=== PATIENT | male | born 1990 | race Caucasian/White ===

== ENCOUNTER 2017-06-12 16:09 | Emergency (ER) | payer MEDICAID ==
[2017-06-12 16:30] VITALS: BP 139/87
--- NOTE | 2017-06-12 18:23 | ED Physician Documentation ---
PD HPI UPPER EXT INJURY - Stated complaint Stated Complaint: R HAND NUMB - Chief complaint Chief Complaint: Ext Problem - History obtained from History obtained from: Patient - History of Present Illness Location: Right, Wrist PD PAST MEDICAL HISTORY - Past Medical History Cardiovascular: None Respiratory: Asthma, Pneumonia Neuro: None Endocrine/Autoimmune: None GI: None : None HEENT: None Psych: Anxiety Musculoskeletal: None Derm: None - Past Surgical History Past Surgical History: Yes HEENT: Tonsil/Adenoidectomy - Present Medications Home Medications: Ambulatory Orders Medication Instructions Recorded Confirmed No Known Home Medications [No 06/12/17 06/12/17 Known Home Medications] - Allergies Allergies/Adverse Reactions: Allergies Allergy/AdvReac Type Severity Reaction Status Date / Time No Known Drug Allergies Allergy Verified 06/12/17 16:30 - Social History Does the pt smoke?: Yes Smoking Status: Current every day smoker Does the pt drink ETOH?: No Does the pt have substance abuse?: Yes - Immunizations Immunizations are current?: No - POLST Patient has POLST: No Results - Vitals Vitals: Vital Signs - 24 hr 06/12/17 16:28 Temperature 36.1 C L Heart Rate 96 Respiratory 14 Rate Blood Pressure 139/87 H O2 Saturation 100 Oxygen O2 Source Room air
== END 2017-06-12 18:23 | disposition left against medical advice (07) ==
LOC: ED 16:09
DX: Z53.21 Procedure and treatment not carried out due to patient leaving prior to being seen by health care provider (principal)
CPT/HCPCS: 99281

== ENCOUNTER 2019-06-14 13:56 | Emergency (ER) | payer MEDICAID, OTHER ==
--- NOTE | 2019-06-14 14:42 | ED Physician Documentation ---
History of Present Illness - Stated complaint Stated Complaint: LT FT PX - Chief complaint Chief Complaint: Ext Problem - History obtained from History obtained from: Patient - Additonal information Additional information: Patient is a previously healthy 29-year-old male presenting with left foot and ankle pain after mechanical fall yesterday. 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 Patient denies other fall, striking of head, loss of consciousness, other injury. Patient has been able to bear weight but has significant discomfort. No change in skin such as erythema, rash, swelling. No change in range of motion, strength, or sensation to left lower extremity. No other improving or worsening factors noted. Review of Systems Musculoskeletal: reports: Extremity pain, Joint pain, Pain with weight bearing. denies: Extremity swelling, Joint swelling Neurologic: denies: Focal weakness, Numbness, Head injury, LOC PD PAST MEDICAL HISTORY - Past Medical History Cardiovascular: None Respiratory: Asthma, Pneumonia Endocrine/Autoimmune: None GI: None : None HEENT: None Psych: Anxiety Musculoskeletal: None Derm: None - Past Surgical History Past Surgical History: Yes HEENT: Tonsil/Adenoidectomy - Present Medications Home Medications: Ambulatory Orders Medication Instructions Recorded Confirmed Cephalexin [Keflex] 500 mg PO Q6H #28 capsule 06/14/19 - Allergies Allergies/Adverse Reactions: Allergies Allergy/AdvReac Type Severity Reaction Status Date / Time No Known Drug Allergies Allergy Verified 06/12/17 16:30 - Social History Does the pt smoke?: Yes Smoking Status: Current every day smoker Does the pt drink ETOH?: No Does the pt have substance abuse?: Yes - Immunizations Immunizations are current?: No - POLST Patient has POLST: No PD ED PE NORMAL - Vitals Vital signs reviewed: Yes - General General: Alert and oriented X 3, No acute distress, Well developed/nourished - HEENT HEENT: Atraumatic, Moist mucous membranes - Neck Neck: Supple, no meningeal sign - Cardiac Cardiac: Strong equal pulses - Respiratory Respiratory: No respiratory distress - Derm Derm: Normal color, Warm and dry, No rash, Other (Puncture wound to bottom of left foot along lateral aspect without comp occasions or signs of infection) - Extremities Extremities: No deformity. No: No tenderness to palpate (Pain with palpation of bottom of foot, as well as anterior left ankle.Remainder of left lower extremity within normal limits.) - Neuro Neuro: Alert and oriented X 3, No motor deficit, No sensory deficit - Psych Psych: Normal mood, Normal affect Results - Vitals Vitals: Vital Signs - 24 hr 06/14/19 14:20 Temperature 36.6 C Heart Rate 100 Respiratory 16 Rate Blood Pressure 145/93 H O2 Saturation 98 Oxygen O2 Source Room air PD MEDICAL DECISION MAKING - ED course Complexity details: reviewed results, re-evaluated patient, considered differential, d/w patient ED course: Patient presenting with puncture wound to the foot that is otherwise uncomplicated, but did go through the sole of his shoe. To consider other bacterial infections including Pseudomonas, but given his avenue of work and activity, decided that Keflex would be most appropriate as compared to other medications including levofloxacin. Plain films obtained which not find evidence of bony abnormality such as dislocation or fracture. Feel the patient is experiencing an ankle sprain. Otherwise, feel that he is safe to discharge home. Discussed use of antibiotics, supportive cares, work excuse, return precautions and follow-up. Patient voiced understanding and is comfortable with discharge plan. Departure - Departure Disposition: 01 Home, Self Care Clinical Impression: Puncture wound Ankle pain Qualifiers: Chronicity: acute Laterality: left Qualified Code(s): M25.572 - Pain in left ankle and joints of left foot Condition: Good Instructions: ED Wound Puncture General, ED Sprain Ankle Follow-Up: your,doctor [Other] - Within 3 Days Prescriptions: Cephalexin [Keflex] 500 mg PO Q6H #28 capsule Comments: Please keep wound clean and dry using running water and soap only to clean. Do not submerge underwater. Recommend rest, elevation, ice application, ibuprofen/Tylenol as needed for ankle sprain. Follow-up with primary care physician in next 2 to 3 days and return to ED sooner if experience worsening symptoms or have other concerns. Forms: Activity restrictions
--- NOTE | 2019-06-14 15:34 | XRAY Report ---
Reason: punture wound to bottom foot, pain throughout Procedure Date: 06/14/2019 Accession Number: [id number] / [id number] Procedure: XR - Foot 3 View LT CPT Code: FULL RESULT: EXAM: LEFT FOOT RADIOGRAPHY EXAM DATE: 06/14/2019 03:19 PM. CLINICAL HISTORY: Punture wound to bottom foot, pain throughout. Left lateral foot puncture after stepping on tool today. COMPARISON: None. TECHNIQUE: 3 views. FINDINGS: Bones: No evidence for acute fracture. Small chronic appearing bone fragment seen adjacent to the dorsal distal aspect of the talus. Small distal dorsal navicular bone spur. Tiny chronic appearing calcification seen at the medial aspect of the first interphalangeal joint. Probable small bone island at the posterior aspect of the calcaneus. Joints: Normal. No subluxations. Soft Tissues: No acute soft tissue findings are seen. No definite radiopaque foreign bodies identified. IMPRESSION: No acute findings are seen. See above. RADIA
--- NOTE | 2019-06-14 16:25 | XRAY Report ---
Reason: rolled ankle with anterior pain Procedure Date: 06/14/2019 Accession Number: [id number] / [id number] Procedure: XR - Ankle 3 View LT CPT Code: FULL RESULT: EXAM: LEFT ANKLE RADIOGRAPHY EXAM DATE: 06/14/2019 03:19 PM. CLINICAL HISTORY: Rolled ankle with anterior pain. COMPARISON: None. TECHNIQUE: 3 views. FINDINGS: Bones: No fracture or focal bony lesion. Joints: No evidence of dislocation. Soft Tissues: No unexpected soft tissue findings. IMPRESSION: No evidence of fracture or dislocation. RADIA
[2019-06-14] MEDS ORDERED: TETANUS/DIPHTHERIA/PERTUSSIS 0.5 ML SYRINGE IM ONE (16:43)
[2019-06-14 17:01] VITALS: BP 168/92
== END 2019-06-14 17:01 | disposition home or self-care (01) ==
LOC: ED 13:56
DX: S91.332A Puncture wound without foreign body, left foot, initial encounter (principal); W22.8XXA Striking against or struck by other objects, initial encounter; S93.402A Sprain of unspecified ligament of left ankle, initial encounter; X50.1XXA Overexertion from prolonged static or awkward postures, initial encounter; Y93.89 Activity, other specified; Y99.0 Civilian activity done for income or pay; Z23 Encounter for immunization; F17.200 Nicotine dependence, unspecified, uncomplicated
CPT/HCPCS: 90471; 99283

== ENCOUNTER 2019-06-19 | Emergency (ER) | payer MEDICAID, OTHER | END 2019-06-19 17:05 | disposition home or self-care (01) | DX: S13.9XXA Sprain of joints and ligaments of unspecified parts of neck, initial encounter (principal); S43.401A Unspecified sprain of right shoulder joint, initial encounter; S33.5XXA Sprain of ligaments of lumbar spine, initial encounter; V89.2XXA Person injured in unspecified motor-vehicle accident, traffic, initial encounter; F17.200 Nicotine dependence, unspecified, uncomplicated | CPT/HCPCS: 71046; 72125; 72131; 73030; 99283; 99284; A9270 ==

== ENCOUNTER 2019-06-19 13:30 | Outpatient (CLI) | payer OTHER | END 2019-06-19 13:31 | disposition EMS.NT | LOC: EMS 13:30 | PROVIDERS: ATTEND Surgery | DX: M25.511 Pain in right shoulder (principal) ==

== ENCOUNTER 2020-09-22 10:04 | Emergency (ER) | payer MEDICAID ==
[2020-09-22 10:28] LABS: BILIRUBIN,URINE NEGATIVE (NEGATIVE); GLUCOSE, URINE (UA) NEGATIVE (NEGATIVE); KETONES,URINE (UA) NEGATIVE (NEGATIVE); LEUKOCYTE ESTERASE, URINE NEGATIVE (NEGATIVE); NITRITE,URINE NEGATIVE (NEGATIVE); OCCULT BLOOD,URINE TRACE-INTA (NEGATIVE); PROTEIN,URINE NEGATIVE (NEGATIVE); UROBILINOGEN,URINE 0.2 (NORMAL) E.U./dL (NORMAL)
[2020-09-22 10:29] LABS: CLARITY,URINE CLEAR (CLEAR)
[2020-09-22 10:38] LABS: BASOPHILS # (AUTO) 0.1 10^3/uL (0.0-0.1); BASOPHILS % (AUTO) 0.4 %; EOSINOPHILS % (AUTO) 0.2 %; LYMPHOCYTES # (AUTO) 2.4 10^3/uL (1.5-3.5); LYMPHOCYTES % (AUTO) 14.9 %; MEAN CORPUSCULAR HEMOGLOBIN 30.9 pg (27.0-31.0); MEAN CORPUSCULAR HGB CONC 35.1 g/dL (32.0-36.0); MEAN PLATELET VOLUME 10.3 fL (7.4-11.4); MONOCYTES % (AUTO) 6.3 %; NEUTROPHILS # (AUTO) 12.4 10^3/uL (1.5-6.6); NEUTROPHILS % (AUTO) 77.7 %; PLT - PLATELET COUNT 292 10^3/uL (130-450); RED BLOOD COUNT 5.18 10^6/uL (4.70-6.10); RED CELL DISTRIBUTION WIDTH 11.8 % (12.0-15.0)
--- NOTE | 2020-09-22 10:38 | ED Physician Documentation ---
PD HPI NVD - Stated complaint Stated Complaint: CRAMPING - Chief complaint Chief Complaint: Abd Pain - History obtained from History obtained from: Patient - History of Present Illness Timing - onset: How many days ago (3) Timing - duration: Days Timing - details: Gradual onset, Still present, Waxing and waning Associated symptoms: Abdominal pain Contributing factors: No: Sick contact, Bad food, Travel, Recent antibiotics, Alcohol use, Anticoagulated, Diabetes Improved by: Eating, Vomiting Similar symptoms before: Has not had sx before Recently seen: Not recently seen - Additonal information Additional information: Epigastric pain Review of Systems Constitutional: denies: Fever Eyes: denies: Decreased vision Ears: denies: Ear pain Nose: denies: Congestion Throat: denies: Sore throat Cardiac: denies: Chest pain / pressure, Palpitations Respiratory: denies: Dyspnea, Cough GI: reports: Abdominal Pain, Nausea, Vomiting : denies: Dysuria, Frequency PD PAST MEDICAL HISTORY - Past Medical History Past Medical History: Yes Cardiovascular: None Respiratory: Asthma, Pneumonia Neuro: None Endocrine/Autoimmune: None GI: GERD : None HEENT: None Psych: Anxiety Musculoskeletal: None Derm: None - Past Surgical History Past Surgical History: Yes HEENT: Tonsil/Adenoidectomy - Present Medications Home Medications: Ambulatory Orders Medication Instructions Recorded Confirmed Cephalexin [Keflex] 500 mg PO Q6H #28 capsule 06/14/19 Sucralfate [Carafate] 1 gm PO ACHS #60 tablet 09/22/20 - Allergies Allergies/Adverse Reactions: Allergies Allergy/AdvReac Type Severity Reaction Status Date / Time No Known Drug Allergies Allergy Verified 09/22/20 10:08 - Social History Does the pt smoke?: Yes Smoking Status: Current every day smoker Does the pt drink ETOH?: Yes Does the pt have substance abuse?: Yes Substance Use and Type: Marijuana - Immunizations Immunizations are current?: No - POLST Patient has POLST: No PD ED PE NORMAL - Vitals Vital signs reviewed: Yes (hypertensive ) - General General: Alert and oriented X 3, No acute distress, Well developed/nourished - HEENT HEENT: Atraumatic, PERRL, EOMI - Neck Neck: Supple, no meningeal sign, No bony TTP - Cardiac Cardiac: RRR, No murmur - Respiratory Respiratory: No respiratory distress, Clear bilaterally - Abdomen Abdomen: Normal bowel sounds, Soft, Non distended, No organomegaly, Other (minimal tenderness to deep palpation of the epigastrium ) - Back Back: No CVA TTP, No spinal TTP - Derm Derm: Normal color, Warm and dry, No rash - Extremities Extremities: No deformity, No edema - Neuro Neuro: Alert and oriented X 3, lemon picker 2-12 intact, No motor deficit Eye Opening: Spontaneous Motor: Obeys Commands Verbal: Oriented GCS Score: 15 - Psych Psych: Normal mood, Normal affect Results - Vitals Vitals: Vital Signs - 24 hr 09/22/20 09/22/20 09/22/20 10:08 10:32 12:14 Temperature 37 C 36.9 C 37.5 C Heart Rate 86 73 80 Respiratory 18 18 18 Rate Blood Pressure 132/95 H 111/78 122/78 O2 Saturation 96 96 100 Oxygen O2 Source Room air - Labs Labs: Laboratory Tests 09/22/20 09/22/20 09/22/20 10:15 10:25 10:25 WBC 16.0 H RBC 5.18 Hgb 16.0 Hct 45.6 MCV 88.0 MCH 30.9 MCHC 35.1 RDW 11.8 L Plt Count 292 MPV 10.3 Neut # (Auto) 12.4 H Lymph # (Auto) 2.4 [place] # (Auto) 1.0 Eos # (Auto) 0.0 Baso # (Auto) 0.1 Absolute Nucleated RBC 0.00 Nucleated RBC % 0.0 Sodium 137 Potassium 3.7 Chloride 102 Carbon Dioxide 23 Anion Gap 12.0 BUN 13 Creatinine 0.9 Estimated GFR (MDRD) 100 Glucose 122 H Calcium 9.4 Total Bilirubin 0.8 AST 25 ALT 39 Alkaline Phosphatase 63 Total Protein 7.8 Albumin 4.5 Globulin 3.3 Albumin/Globulin Ratio 1.4 Lipase 25 Urine Color LT. YELLOW Urine Clarity CLEAR Urine pH 6.0 Ur Specific [place] 1.015 Urine Protein NEGATIVE Urine Glucose (UA) NEGATIVE Urine Ketones NEGATIVE Urine Occult Blood TRACE-INTA Urine Nitrite NEGATIVE Urine Bilirubin NEGATIVE Urine Urobilinogen 0.2 (NORMAL) Ur Leukocyte Esterase NEGATIVE Ur Microscopic Review NOT INDICATED Urine Culture Comments NOT INDICATED PD MEDICAL DECISION MAKING - ED course Complexity details: reviewed old records, reviewed results, re-evaluated patient, considered differential, d/w patient, d/w family ED course: 30 y/o male with a sour stomach has improvement in symptoms with the use of a GI cocktail consisting of Viscous lidocaine and Mylanta.He is diagnosed with gastritis and will place him on some Pepcid AC and Carafate. I have asked the patient to follow-up with surgery for scoping if required within the next month. Departure - Departure Disposition: Home, Self Care Clinical Impression: Gastritis Qualifiers: Gastritis type: unspecified gastritis Chronicity: acute Gastritis bleeding: without bleeding Qualified Code(s): K29.00 - Acute gastritis without bleeding Condition: Stable Instructions: ED PUD Vs Gastritis Follow-Up: [facility] [Provider Group] Tavon Christianson MD [Provider Admit Priv/Credential] - Prescriptions: Sucralfate [Carafate] 1 gm PO ACHS #60 tablet Comments: Today you have been diagnosed with gastritis or an inflammation of the lining of the stomach. This can include peptic ulcer. The recommendation is to take Pepcid AC daily for 10 to 14 days and in addition I have prescribed Carafate. Expect her symptoms to resolve rapidly and be resolved. If you have recurrence of your symptoms after completion of your treatment follow-up with the surgical center for further evaluation. Discharge Date/Time: 09/22/20 12:15
[2020-09-22 10:47] LABS: ALBUMIN 4.5 g/dL (3.2-5.5); ALBUMIN/GLOBULIN RATIO 1.4 (1.0-2.2); BILIRUBIN,TOTAL 0.8 mg/dL (0.2-1.0); CALCIUM 9.4 mg/dL (8.5-10.3); CREATININE 0.9 mg/dL (0.6-1.2); TOTAL PROTEIN 7.8 g/dL (6.7-8.2)
[2020-09-22] MEDS ORDERED: SUCRALFATE 1 GM/10 ML UDC PO STA (11:00)
[2020-09-22] MEDS ORDERED: LIDOCAINE VISCOUS 2% 15 ML UDC MM STA (11:00)
[2020-09-22] MEDS ORDERED: MAG HYDROX/AL HYDROX/SIMETH 30 ML UDC PO STA (11:00)
[2020-09-22 12:14] VITALS: BP 122/78
== END 2020-09-22 12:15 | disposition home or self-care (01) ==
LOC: ED 10:04
DX: K29.00 Acute gastritis without bleeding (principal); F17.200 Nicotine dependence, unspecified, uncomplicated
CPT/HCPCS: 36415; 80053; 81003; 83690; 85025; 99283; 99284; A9270; 81001; 87086

== ENCOUNTER 2020-09-23 08:43 | Emergency (ER) | payer MEDICAID ==
[2020-09-23] MEDS ORDERED: LIDOCAINE VISCOUS 2% 15 ML UDC MM STA (09:02)
[2020-09-23] MEDS ORDERED: MAG HYDROX/AL HYDROX/SIMETH 30 ML UDC PO STA (09:02)
--- NOTE | 2020-09-23 09:03 | ED Physician Documentation ---
PD HPI ABD PAIN - Stated complaint Stated Complaint: ABD PX, SWEATS - Chief complaint Chief Complaint: Abd Pain - History obtained from History obtained from: Patient - Additional information Additional information: 30-year-old gentleman with no history of significant abdominal problems was seen here yesterday for presumed gastritis. He did have relief with a GI cocktail. Labs were notable for leukocytosis. He was given sucralfate and referred for upper endoscopy. After taking the sucralfate this morning his pain is better but not resolved but started to be getting sweats and hot flashes. He has no history of abdominal surgeries. He does use marijuana daily and find some relief from a hot bath. Review of Systems Constitutional: reports: Chills, Sweats. denies: Fever Cardiac: denies: Palpitations Respiratory: denies: Dyspnea, Cough GI: reports: Abdominal Pain, Nausea. denies: Vomiting PD PAST MEDICAL HISTORY - Past Medical History Cardiovascular: None Respiratory: Asthma, Pneumonia Neuro: None Endocrine/Autoimmune: None GI: None : None HEENT: None Psych: Anxiety Musculoskeletal: None Derm: None - Past Surgical History Past Surgical History: Yes HEENT: Tonsil/Adenoidectomy - Present Medications Home Medications: Ambulatory Orders Medication Instructions Recorded Confirmed Cephalexin [Keflex] 500 mg PO Q6H #28 capsule 06/14/19 Sucralfate [Carafate] 1 gm PO ACHS #60 tablet 09/22/20 Omeprazole 20 mg PO DAILY #30 capsule. 09/23/20 - Allergies Allergies/Adverse Reactions: Allergies Allergy/AdvReac Type Severity Reaction Status Date / Time No Known Drug Allergies Allergy Verified 09/23/20 08:51 - Social History Does the pt smoke?: Yes Smoking Status: Current every day smoker Does the pt drink ETOH?: No Does the pt have substance abuse?: Yes - Immunizations Immunizations are current?: No - POLST Patient has POLST: No PD ED PE NORMAL - Vitals Vital signs reviewed: Yes - General General: Alert and oriented X 3, No acute distress - Cardiac Cardiac: RRR, No murmur - Respiratory Respiratory: No respiratory distress, Clear bilaterally - Abdomen Abdomen: Normal bowel sounds, Soft, Non tender - Extremities Extremities: No edema, No calf tenderness / cord - Neuro Neuro: Alert and oriented X 3, Normal speech Results - Vitals Vitals: Vital Signs - 24 hr 09/23/20 09/23/20 08:48 09:50 Temperature 37.1 C Heart Rate 117 H 75 Respiratory 16 19 Rate Blood Pressure 156/90 H 130/86 H O2 Saturation 99 98 Oxygen O2 Source Room air - Labs Labs: Laboratory Tests 09/23/20 09/23/20 09:09 09:09 WBC 13.7 H RBC 5.23 Hgb 16.3 Hct 45.9 MCV 87.8 MCH 31.2 H MCHC 35.5 RDW 11.8 L Plt Count 284 MPV 10.2 Neut # (Auto) 10.3 H Lymph # (Auto) 2.6 [place] # (Auto) 0.8 Eos # (Auto) 0.1 Baso # (Auto) 0.1 Absolute Nucleated RBC 0.00 Nucleated RBC % 0.0 Sodium 138 Potassium 3.6 Chloride 104 Carbon Dioxide 22 Anion Gap 12.0 BUN 12 Creatinine 0.9 Estimated GFR (MDRD) 100 Glucose 115 H Calcium 9.1 Total Bilirubin 1.2 H AST 24 ALT 40 Alkaline Phosphatase 58 Total Protein 7.8 Albumin 4.6 Globulin 3.2 Albumin/Globulin Ratio 1.4 Lipase 24 - Rads (name of study) RUQ sono Radiology: Prelim report reviewed (fatty liver) PD MEDICAL DECISION MAKING - ED course ED course: 30-year-old gentleman presents with persistent upper abdominal pain, most likely gastritis. He did get relief with a GI cocktail. He does use marijuana daily, discussed with him if this becomes a recurrent phenomenon that he should consider quitting THC products. We will change him over to a PPI. Given mild increase in bilirubin since yesterday and a right upper quadrant ultrasound was done without pertinent positive findings. Remained completely nontender on reevaluation prior to discharge. Departure - Departure Disposition: 01 Home, Self Care Clinical Impression: Gastritis Qualifiers: Gastritis type: unspecified gastritis Chronicity: acute Gastritis bleeding: w ithout bleeding Qualified Code(s): K29.00 - Acute gastritis without bleeding Abdominal pain Qualifiers: Abdominal location: epigastric Qualified Code(s): R10.13 - Epigastric pain Condition: Stable Record reviewed to determine appropriate education?: Yes Instructions: ED Gastritis Follow-Up: Blaise Hicks MD [Provider Admit Priv/Credential] - Prescriptions: Omeprazole 20 mg PO DAILY #30 capsule.dr Comments: Return if worsening or if pain moves to the lower abdomen. If not better very quickly follow-up with a surgeon for evaluation for upper endoscopy. One is listed on this form.
[2020-09-23] MEDS ORDERED: PANTOPRAZOLE 40 MG VIAL IVP STA (09:04)
[2020-09-23 09:13] LABS: BASOPHILS # (AUTO) 0.1 10^3/uL (0.0-0.1); BASOPHILS % (AUTO) 0.4 %; EOSINOPHILS # (AUTO) 0.1 10^3/uL (0.0-0.7); EOSINOPHILS % (AUTO) 0.4 %; HGB - HEMOGLOBIN 16.3 g/dL (14.0-18.0); LYMPHOCYTES # (AUTO) 2.6 10^3/uL (1.5-3.5); LYMPHOCYTES % (AUTO) 18.6 %; MEAN CORPUSCULAR HEMOGLOBIN 31.2 pg (27.0-31.0); MEAN CORPUSCULAR HGB CONC 35.5 g/dL (32.0-36.0); MEAN CORPUSCULAR VOLUME 87.8 fL (80.0-94.0); MEAN PLATELET VOLUME 10.2 fL (7.4-11.4); MONOCYTES # (AUTO) 0.8 10^3/uL (0.0-1.0); MONOCYTES % (AUTO) 5.5 %; NEUTROPHILS # (AUTO) 10.3 10^3/uL (1.5-6.6); NEUTROPHILS % (AUTO) 74.7 %; PLT - PLATELET COUNT 284 10^3/uL (130-450); RED BLOOD COUNT 5.23 10^6/uL (4.70-6.10); RED CELL DISTRIBUTION WIDTH 11.8 % (12.0-15.0); WHITE BLOOD COUNT 13.7 x10^3/uL (4.8-10.8)
[2020-09-23 09:29] LABS: ALBUMIN 4.6 g/dL (3.2-5.5); ALBUMIN/GLOBULIN RATIO 1.4 (1.0-2.2); BILIRUBIN,TOTAL 1.2 mg/dL (0.2-1.0); CALCIUM 9.1 mg/dL (8.5-10.3); CREATININE 0.9 mg/dL (0.6-1.2); TOTAL PROTEIN 7.8 g/dL (6.7-8.2)
[2020-09-23 10:50] VITALS: BP 136/84
--- NOTE | 2020-09-23 10:56 | Ultrasound Report ---
PROCEDURE: Abdomen Limited INDICATIONS: epigastric pain, mild elev bili TECHNIQUE: Real-time scanning was performed of the abdominal and retroperitoneal organs, with image documentatio n. COMPARISON: None. FINDINGS: Liver: Liver is normal in size and diffusely increased echogenicity without focal intrahepatic mass lesions. Gallbladder: Gallbladder is normal in sonographic appearance without gallstones, wall thickening, per icholecystic fluid, or abnormal sonographic Connor's sign. Biliary ducts: Intrahepatic bile ducts are non-dilated. Extrahepatic bile duct caliber measures 5 m m. Normal is 6-7 mm or less in diameter, or 10 mm or less post-cholecystectomy. Pancreas: Pancreas is obscured by overlying bowel gas. Kidneys: Right kidney is normal in size and echotexture. Right kidney measures 11.7 cm long. No hydr onephrosis or nephrolithiasis. No solid masses. Aorta: Visualized aorta is normal in caliber at less than 3 cm. IVC: Intrahepatic inferior vena cava is patent. Miscellaneous: No free abdominal fluid. IMPRESSION: Diffusely increased hepatic echogenicity compatible with hepatic steatosis versus chronic hepatocellu lar disease. No focal intrahepatic lesions. Pancreas obscured by overlying bowel gas. Normal gallbladder. Reviewed by: Rad Robbins MD on 09/23/2020 9:55 AM [facility] Approved by: Rad Robbins MD on 09/23/2020 9:55 AM [facility] Station ID: [id number]
== END 2020-09-23 10:50 | disposition home or self-care (01) ==
LOC: ED 08:43
DX: K29.00 Acute gastritis without bleeding (principal); K76.0 Fatty (change of) liver, not elsewhere classified; F12.90 Cannabis use, unspecified, uncomplicated; F17.200 Nicotine dependence, unspecified, uncomplicated
CPT/HCPCS: 36415; 76705; 80053; 83690; 85025; 96374; 99284; A9270

== ENCOUNTER 2020-09-24 10:26 | Emergency (ER) | payer MEDICAID ==
--- NOTE | 2020-09-24 11:10 | ED Physician Documentation ---
PD HPI ABD PAIN - Stated complaint Stated Complaint: SHARP ABD PX - Chief complaint Chief Complaint: Abd Pain - History obtained from History obtained from: Patient - History of Present Illness Timing - onset: How many days ago (4) Timing - details: Abrupt onset, Still present, Waxing and waning Quality: Cramping, Aching, Pain Location: RLQ, Suprapubic Radiation: Lower back Improved by: Laying still Worsened by: Moving, Breathing, Palpation Associated symptoms: Fever (subjective mild.), Nausea, Vomiting, Hematemesis. No: Diarrhea Similar symptoms before: No diagnosis Recently seen: Emergency Dept Review of Systems Constitutional: denies: Fever, Chills Nose: denies: Rhinorrhea / runny nose, Congestion Throat: denies: Sore throat Cardiac: denies: Chest pain / pressure, Palpitations Respiratory: denies: Dyspnea, Cough GI: reports: Abdominal Pain, Nausea, Vomiting. denies: Diarrhea : denies: Dysuria, Frequency Skin: denies: Rash, Lesions Neurologic: denies: Focal weakness, Numbness, Near syncope PD PAST MEDICAL HISTORY - Past Medical History Cardiovascular: None Respiratory: Asthma, Pneumonia Neuro: None Endocrine/Autoimmune: None GI: None : None HEENT: None Psych: Anxiety Musculoskeletal: None Derm: None - Past Surgical History Past Surgical History: Yes HEENT: Tonsil/Adenoidectomy - Present Medications Home Medications: Ambulatory Orders Medication Instructions Recorded Confirmed Cephalexin [Keflex] 500 mg PO Q6H #28 capsule 06/14/19 Sucralfate [Carafate] 1 gm PO ACHS #60 tablet 09/22/20 Omeprazole 20 mg PO DAILY #30 capsule. 09/23/20 Hydrocodone/Acetaminophen [[place] 1 each PO Q6H PRN #15 tablet 09/24/20 5-325 Tablet] Lidocaine Viscous 2% [Xylocaine 5 ml PO Q4H PRN #100 ml 09/24/20 Viscous 2%] Ondansetron Odt [Zofran] 4 mg TL Q6H PRN #20 tablet 09/24/20 - Allergies Allergies/Adverse Reactions: Allergies Allergy/AdvReac Type Severity Reaction Status Date / Time No Known Drug Allergies Allergy Verified 09/24/20 10:42 - Social History Does the pt smoke?: Yes Smoking Status: Current every day smoker Does the pt drink ETOH?: No Does the pt have substance abuse?: Yes - Immunizations Immunizations are current?: No - POLST Patient has POLST: No PD ED PE NORMAL - Vitals Vital signs reviewed: Yes - General General: Alert and oriented X 3, No acute distress, Well developed/nourished - HEENT HEENT: PERRL, Ears normal, Pharynx benign - Neck Neck: Supple, no meningeal sign, No adenopathy - Cardiac Cardiac: RRR, No murmur - Respiratory Respiratory: Clear bilaterally - Abdomen Abdomen: Normal bowel sounds, Soft, Non distended, No organomegaly, Other (some tenderness epigastric to RUQ area without guarding nor percussion tenderness. ) Results - Vitals Vitals: Vital Signs - 24 hr 09/24/20 09/24/20 10:36 14:27 Temperature 36.7 C 37.0 C Heart Rate 90 73 Respiratory 16 18 Rate Blood Pressure 151/93 H 128/85 H O2 Saturation 97 99 Oxygen O2 Source Room air PD MEDICAL DECISION MAKING - ED course Complexity details: reviewed old records (abd CT 3 days ago and labs as well. ), re-evaluated patient (improved with meds and fluids. ), considered differential, d/w patient Departure - Departure Disposition: 01 Home, Self Care Clinical Impression: Upper abdominal pain Condition: Stable Record reviewed to determine appropriate education?: Yes Instructions: ED PUD Vs Gastritis Prescriptions: Hydrocodone/Acetaminophen [[place] 5-325 Tablet] 1 each PO Q6H PRN #15 tablet PRN Reason: Pain Lidocaine Viscous 2% [Xylocaine Viscous 2%] 5 ml PO Q4H PRN #100 ml PRN Reason: Pain Ondansetron Odt [Zofran] 4 mg TL Q6H PRN #20 tablet PRN Reason: Nausea / Vomiting Comments: Continue your current acid reducing medicines previously prescribed. You can add lidocaine mixed with some antacids periodically if needed for the abdominal pain. Add Tylenol every 4-6 hours if needed for pain. You could use stronger pain medicine episodically if needed for worse pain. Ondansetron if needed for nausea. Follow-up with the surgery regarding the scope next week as planned. Follow-up with your primary care, call for an appointment. Discharge Date/Time: 09/24/20 14:42
[2020-09-24] MEDS ORDERED: ONDANSETRON 4 MG/2 ML VIAL IVP STA (11:47)
[2020-09-24] MEDS ORDERED: SODIUM CHLORIDE 0.9% 1,000 ML IV STA (11:47)
[2020-09-24] MEDS ORDERED: HYDROmorphone 1 MG/ML CARPUJECT IVP STA ×2 (11:47→13:12)
[2020-09-24] MEDS ORDERED: LIDOCAINE VISCOUS 2% 15 ML UDC MM STA (11:48)
[2020-09-24] MEDS ORDERED: MAG HYDROX/AL HYDROX/SIMETH 30 ML UDC PO STA (11:48)
[2020-09-24] MEDS ORDERED: FAMOTIDINE 20 MG/2 ML SYRINGE IVP STA (11:48)
[2020-09-24 14:28] VITALS: BP 128/85
== END 2020-09-24 14:42 | disposition home or self-care (01) ==
LOC: ED 10:26
DX: R10.11 Right upper quadrant pain (principal); R10.13 Epigastric pain; R11.2 Nausea with vomiting, unspecified; F17.200 Nicotine dependence, unspecified, uncomplicated
CPT/HCPCS: 96374; 96375; 99283; 99284; A9270

== ENCOUNTER 2020-10-03 05:26 | Emergency (ER) | payer MEDICAID ==
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
[2020-10-03] MEDS ORDERED: DEXAMETHASONE 10 MG/ML VIAL PO STA (05:56)
[2020-10-03] MEDS ORDERED: CHERRY SYRUP 10 ML UDC PO ONE (05:56)
[2020-10-03 07:13] VITALS: BP 124/72
== END 2020-10-03 07:12 | disposition home or self-care (01) ==
LOC: ED 05:26
DX: T59.811A Toxic effect of smoke, accidental (unintentional), initial encounter (principal); Y92.009 Unspecified place in unspecified non-institutional (private) residence as the place of occurrence of the external cause; J68.9 Unspecified respiratory condition due to chemicals, gases, fumes and vapors; F17.200 Nicotine dependence, unspecified, uncomplicated; J45.909 Unspecified asthma, uncomplicated
CPT/HCPCS: 82375; 99284; 99285; A9270

== ENCOUNTER 2020-10-18 03:35 | Emergency (ER) | payer MEDICAID ==
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
[2020-10-18] MEDS ORDERED: DEXAMETHASONE 10 MG/ML VIAL PO STA (04:24)
[2020-10-18] MEDS ORDERED: CHERRY SYRUP 10 ML UDC PO ONE (04:24)
[2020-10-18 05:31] LABS: C. PNEUMONIAE- RESP PCR PANEL NOT DETECTED
[2020-10-18 05:53] VITALS: BP 110/72
--- NOTE | 2020-10-18 09:41 | XRAY Report ---
PROCEDURE: Chest 1 View X-Ray INDICATIONS: soa, chest pain TECHNIQUE: One view of the chest was acquired. Repeat to include the left lung base wasn't performe d. COMPARISON: 06/19/2019 FINDINGS: Surgical changes and devices: None. Lungs and pleura: No pleural effusions or pneumothorax. Lungs are clear. Mediastinum: Mediastinal contours appear normal. Heart size is normal. Bones and chest wall: No suspicious bony lesions. Overlying soft tissues appear unremarkable. IMPRESSION: No evidence of an acute cardiopulmonary abnormality. Reviewed by: Timothy Evans DO on 10/18/2020 8:40 AM [facility] Approved by: Timothy Evans DO on 10/18/2020 8:40 AM [facility] Station ID: [id number]
== END 2020-10-18 05:52 | disposition home or self-care (01) ==
LOC: ED 03:35
DX: J20.6 Acute bronchitis due to rhinovirus (principal); J45.21 Mild intermittent asthma with (acute) exacerbation; H66.002 Acute suppurative otitis media without spontaneous rupture of ear drum, left ear; F17.200 Nicotine dependence, unspecified, uncomplicated; Z20.828 Contact with and (suspected) exposure to other viral communicable diseases
CPT/HCPCS: 0202U; 71045; 99284; A9270

== ENCOUNTER 2021-01-20 17:00 | Emergency (ER) | payer MEDICAID ==
[2021-01-20 17:12] VITALS: BP 142/102
--- NOTE | 2021-01-20 18:14 | ED Physician Documentation ---
PD HPI URI - Stated complaint Stated Complaint: SOA - Chief complaint Chief Complaint: Resp - History obtained from History obtained from: Patient - History of Present Illness Timing - onset: Today Timing duration: Days Timing details: Gradual onset Pain level max: 0 Pain level now: 0 Associated symptoms: Nasal congestion, Rhinorrhea, Dry cough. No: Fever, Chills, Sweats, Sinus pain, Hemoptysis, Chest pain, Dyspnea Contributing factors: No: Sick contact Improves by: Rest Worsened by: Activity, Breathing Recently seen: Not recently seen - Additional information Additional information: 30-year-old male with a cough starting today. Work sent him here for a Covid swab. No fevers. No chills. Review of Systems Constitutional: denies: Fever, Chills Ears: denies: Ear pain Cardiac: denies: Chest pain / pressure GI: denies: Vomiting, Diarrhea Skin: denies: Rash Musculoskeletal: denies: Neck pain, Back pain Neurologic: denies: Headache PD PAST MEDICAL HISTORY - Past Medical History Cardiovascular: None Respiratory: Asthma, Pneumonia Neuro: None Endocrine/Autoimmune: None GI: None : None HEENT: None Psych: Anxiety Musculoskeletal: None Derm: None - Past Surgical History Past Surgical History: Yes HEENT: Tonsil/Adenoidectomy - Present Medications Home Medications: Ambulatory Orders Medication Instructions Recorded Confirmed Sucralfate [Carafate] 1 gm PO ACHS #60 tablet 09/22/20 10/18/20 Omeprazole 20 mg PO DAILY #30 capsule. 09/23/20 10/18/20 Albuterol Sulf [Ventolin Hfa 1 - 2 puffs INH Q4HR PRN #1 inhaler 10/18/20 Inhaler] Amox/Clav 875/125 [Augmentin] 1 each PO Q12H #20 tablet 10/18/20 predniSONE [Deltasone] 10 mg PO ONCE #26 tablet 10/18/20 - Allergies Allergies/Adverse Reactions: Allergies Allergy/AdvReac Type Severity Reaction Status Date / Time No Known Drug Allergies Allergy Verified 01/20/21 17:07 - Social History Does the pt smoke?: Yes Smoking Status: Current every day smoker Does the pt drink ETOH?: No Does the pt have substance abuse?: Yes - Immunizations Immunizations are current?: Yes - POLST Patient has POLST: No PD ED PE NORMAL - Vitals Vital signs reviewed: Yes - General General: Alert and oriented X 3, No acute distress, Well developed/nourished - HEENT HEENT: Moist mucous membranes - Neck Neck: Supple, no meningeal sign - Cardiac Cardiac: RRR, Strong equal pulses - Respiratory Respiratory: No respiratory distress, Clear bilaterally - Abdomen Abdomen: Soft, Non tender, Non distended - Derm Derm: Warm and dry - Neuro Neuro: Alert and oriented X 3 - Psych Psych: Normal mood, Normal affect Results - Vitals Vitals: Vital Signs - 24 hr 01/20/21 17:07 Temperature 37.2 C Heart Rate 98 Respiratory 18 Rate Blood Pressure 142/102 H O2 Saturation 96 Oxygen O2 Source Room air PD MEDICAL DECISION MAKING - ED course Complexity details: reviewed results, re-evaluated patient, considered differential, d/w patient ED course: Patient is well-appearing, nontoxic. Afebrile. No hypoxia. No respiratory distress. No indication for x-ray. Coughing started today. Covid swab performed. Counseled to stay home from work per CDC guidelines. Patient counseled regarding signs and symptoms for which I believe and urgent re- evaluation would be necessary. Patient with good understanding of and agreement to plan and is comfortable going home at this time This document was made in part using voice recognition software. While efforts are made to proofread this document, sound alike and grammatical errors may occur. Departure - Departure Disposition: 01 Home, Self Care Clinical Impression: Viral URI Condition: Good Instructions: ED Viral Syndrome Follow-Up: Queenie Marshall ARNP [Primary Care Provider] - Within 1 week Comments: You have a Covid test pending. You need to self quarantine until the result is done and negative. Do not leave your house. Do not get near anybody. The results should be done in 48 to 72 hours. We will call with a positive result, the fastest way to get a negative result for confirmation though is to go to the hospital website at [email or web address], click on the my [facility] tab and sign up for the patient portal. If any friends or family get sick and would like to have a Covid test done, but do not have signs or symptoms that would necessitate being hospitalized, we encourage testing through our coronavirus swabbing station, call [phone] to schedule an appointment.
== END 2021-01-20 18:29 | disposition home or self-care (01) ==
LOC: ED 17:00 → SUPCPDRO 17:00 → ED 18:29
DX: J06.9 Acute upper respiratory infection, unspecified (principal); F17.200 Nicotine dependence, unspecified, uncomplicated; Z20.822 Contact with and (suspected) exposure to COVID-19
CPT/HCPCS: 99283

== ENCOUNTER 2021-10-27 20:51 | Emergency (ER) | payer MEDICAID ==
[2021-10-27 20:58] VITALS: BP 148/94
--- NOTE | 2021-10-27 21:14 | ED Physician Documentation ---
History of Present Illness - Stated complaint Stated Complaint: LT EAR/HEAD PX - Chief complaint Chief Complaint: Heent - History obtained from History obtained from: Patient - Additonal information Additional information: 31yM with pmh seasonal allergies, asthma, p/w L ear pain intermittent X 2 weeks, gradually worsening, aching, a/w mild constant gradual onset L neck pain and mild headache. denies fevers. +chronic rhinorrhea, congestion, itchy throat. denies cough. Review of Systems Constitutional: denies: Fever, Chills Ears: reports: Ear pain. denies: Drainage/discharge Nose: reports: Rhinorrhea / runny nose, Congestion Throat: reports: Sore throat PD PAST MEDICAL HISTORY - Past Medical History Cardiovascular: None Respiratory: Asthma, Pneumonia Neuro: None Endocrine/Autoimmune: None GI: None : None HEENT: None Psych: Anxiety Musculoskeletal: None Derm: None - Past Surgical History Past Surgical History: Yes HEENT: Tonsil/Adenoidectomy - Present Medications Home Medications: Ambulatory Orders Medication Instructions Recorded Confirmed No Known Home Medications 10/27/21 10/27/21 - Allergies Allergies/Adverse Reactions: Allergies Allergy/AdvReac Type Severity Reaction Status Date / Time No Known Drug Allergies Allergy Verified 10/27/21 20:58 - Social History Does the pt smoke?: Yes Smoking Status: Current every day smoker Does the pt drink ETOH?: No Does the pt have substance abuse?: Yes - Immunizations Immunizations are current?: Yes - POLST Patient has POLST: No PD ED PE NORMAL - Vitals Vital signs reviewed: Yes - General General: Alert and oriented X 3, No acute distress, Well developed/nourished - HEENT HEENT: Atraumatic, PERRL, EOMI, Ears normal, Moist mucous membranes, Pharynx benign, Dentition benign, Other (BL TMs clear) - Neck Neck: Supple, no meningeal sign, Other (R anterior cervical LAD. L occipital LAD) - Cardiac Cardiac: RRR Results - Vitals Vitals: Vital Signs - 24 hr 10/27/21 20:55 Temperature 36.1 C L Heart Rate 91 Respiratory 16 Rate Blood Pressure 148/94 H O2 Saturation 97 Oxygen O2 Source Room air PD MEDICAL DECISION MAKING - ED course ED course: 31yM p/w L ear and neck pain, without evidence of clinically significant otitis. patient does have 1 tender lymph node along L occiput as well as R anterior cervical LAD. offered analgesia for headache and neck pain but patient declined, stating he just wanted to make sure he didn't have an ear infection. return precautions discussed. symptomatic care discussed. Departure - Departure Disposition: Home, Self Care Clinical Impression: Ear pain, Headache Condition: Stable Instructions: ED Acute Pain [facility] Comments: You are seen in the emergency department for evaluation of neck and left ear pain. You do not have any ear infection. You can take ibuprofen 600 mg every 6 hours as needed for pain and Claritin daily. Return to the emergency department if you have any fevers, temperature higher than 100.4, new or worsening symptoms or other concerns.
== END 2021-10-27 21:19 | disposition home or self-care (01) ==
LOC: ED 20:51
DX: H92.02 Otalgia, left ear (principal); R51.9 Headache, unspecified; F17.200 Nicotine dependence, unspecified, uncomplicated
CPT/HCPCS: 99281; 99282

== ENCOUNTER 2022-04-20 13:50 | Emergency (ER) | payer MEDICAID ==
[2022-04-20 14:00] VITALS: BP 141/73
--- OUTSIDE RECORDS SUMMARY | 2022-04-20 14:06 | EXTERNAL MEDICAL SUMMARY RPT | Continuity of Care Document ---
:1990 Author Organization [facility] Address [address] [place] [address] Phone Care Team Providers Name Role Phone Daniel Morales Unavailable Unavailable Allergies No information. Encounters No information. Medications date description facility 20220302 Penicillin V Potassium 500 MG Oral [facility] Problems Procedures date description facility [id number] [facility] Results No information. Vital Signs date measurement value source 20220302 weight_standard 290 lb 20220302 weight_metric 131.54 kg 20220302 temperature_standard 98.8 F 20220302 temperature_metric 37.11 C 20220302 respiration_rate 22 /min 20220302 heart_rate 98 /min 20220302 BP_systolic 162 mm[Hg] 20220302 BP_diastolic 98 mm[Hg]
[2022-04-20 15:06] LABS: BASOPHILS # (AUTO) 0.1 10^3/uL (0.0-0.1); BASOPHILS % (AUTO) 0.6 %; EOSINOPHILS # (AUTO) 0.2 10^3/uL (0.0-0.7); EOSINOPHILS % (AUTO) 1.4 %; HCT - HEMATOCRIT 46.6 % (42.0-52.0); LYMPHOCYTES # (AUTO) 3.2 10^3/uL (1.5-3.5); MEAN CORPUSCULAR HEMOGLOBIN 31.3 pg (27.0-31.0); MEAN CORPUSCULAR HGB CONC 34.3 g/dL (32.0-36.0); MEAN CORPUSCULAR VOLUME 91.2 fL (80.0-94.0); MEAN PLATELET VOLUME 10.1 fL (7.4-11.4); MONOCYTES # (AUTO) 0.9 10^3/uL (0.0-1.0); MONOCYTES % (AUTO) 6.5 %; NEUTROPHILS # (AUTO) 9.6 10^3/uL (1.5-6.6); NEUTROPHILS % (AUTO) 68.3 %; PLT - PLATELET COUNT 285 10^3/uL (130-450); RED BLOOD COUNT 5.11 10^6/uL (4.70-6.10); RED CELL DISTRIBUTION WIDTH 11.9 % (12.0-15.0)
[2022-04-20 15:15] LABS: CALCIUM 9.3 mg/dL (8.5-10.3); CREATININE 0.9 mg/dL (0.6-1.2); POTASSIUM 3.9 mmol/L (3.5-5.0)
--- NOTE | 2022-04-20 16:10 | ED Physician Documentation ---
PD HPI HEENT - Stated complaint Stated Complaint: SWOLLEN JAW - Chief complaint Chief Complaint: Heent - History obtained from History obtained from: Patient - Additional information Additional information: Patient comes to the emergency department chief complaint of painful swelling inferior to his chin/mandible on the left for the last 3 days. Patient states that he had a viral syndrome of some sort a couple of weeks ago and has been feeling better from that; however, he woke up feeling his drained yesterday morning and then noticed that he had some swelling and firm tissue underneath his left jaw. He states that he has not had any fevers or chills. He denies any specific dental pain in the area and has not noticed any edema of his gingiva or cheeks. He states sometimes it hurts when he points his tongue toward the right side of his face. The patient states that he has had this happen once before and was placed on antibiotics for it at [facility] emergency department. He states it ultimately went away and by the time he followed up with his dentist, the dentist told him that he could not find anything wrong with the patient. Patient states that he does not have any other symptoms. No sore throat, cough, or rhinorrhea. No difficulty breathing, fevers or chills. No other complaints at this time. Review of Systems Ten Systems: 10 systems reviewed and negative Constitutional: reports: Reviewed and negative Eyes: reports: Reviewed and negative Ears: reports: Reviewed and negative Nose: reports: Reviewed and negative Throat: reports: Reviewed and negative Cardiac: reports: Reviewed and negative Respiratory: reports: Reviewed and negative GI: reports: Reviewed and negative : reports: Reviewed and negative Skin: reports: Reviewed and negative Musculoskeletal: reports: Reviewed and negative Neurologic: reports: Reviewed and negative Psychiatric: reports: Reviewed and negative Endocrine: reports: Reviewed and negative Immunocompromised: reports: Reviewed and negative PD PAST MEDICAL HISTORY - Past Medical History Cardiovascular: None Respiratory: Asthma, Pneumonia Neuro: None Endocrine/Autoimmune: None GI: None : None HEENT: None Psych: Anxiety Musculoskeletal: None Derm: None - Past Surgical History Past Surgical History: Yes HEENT: Tonsil/Adenoidectomy - Present Medications Home Medications: Ambulatory Orders Medication Instructions Recorded Confirmed Amoxicillin 500 mg PO TID 7 Days #21 cap 04/20/22 - Allergies Allergies/Adverse Reactions: Allergies Allergy/AdvReac Type Severity Reaction Status Date / Time No Known Drug Allergies Allergy Verified 04/20/22 14:00 - Social History Does the pt smoke?: Yes Smoking Status: Current every day smoker Does the pt drink ETOH?: No Does the pt have substance abuse?: Yes - Immunizations Immunizations are current?: Yes - POLST Patient has POLST: No PD ED PE NORMAL - Vitals Vital signs reviewed: Yes - General General: Alert and oriented X 3, No acute distress, Well developed/nourished - HEENT HEENT: Atraumatic, PERRL, EOMI, Moist mucous membranes, Dentition benign (No obvious decay or fracture. No gingival edema or tenderness. No full buccal swelling or tenderness.), Other (Enlarged, rubbery feeling submandibular gland on the left. Mild tenderness to palpation. No fluctuance. No erythema of the skin overlying.) - Neck Neck: Supple, no meningeal sign, No adenopathy - Respiratory Respiratory: No respiratory distress - Derm Derm: Normal color, Warm and dry, No rash - Extremities Extremities: No deformity - Neuro Neuro: Alert and oriented X 3 - Psych Psych: Normal mood, Normal affect Results - Vitals Vitals: Vital Signs - 24 hr 04/20/22 13:55 Temperature 36.5 C Heart Rate 106 H Respiratory 16 Rate Blood Pressure 141/73 H O2 Saturation 98 Oxygen O2 Source Room air - Labs Labs: Laboratory Tests 04/20/22 04/20/22 15:02 15:02 WBC 14.0 H RBC 5.11 Hgb 16.0 Hct 46.6 MCV 91.2 MCH 31.3 H MCHC 34.3 RDW 11.9 L Plt Count 285 MPV 10.1 Neut # (Auto) 9.6 H Lymph # (Auto) 3.2 Shannon # (Auto) 0.9 Eos # (Auto) 0.2 Baso # (Auto) 0.1 Absolute Nucleated RBC 0.00 Nucleated RBC % 0.0 Sodium 140 Potassium 3.9 Chloride 105 Carbon Dioxide 25 Anion Gap 10.0 BUN 17 Creatinine 0.9 Estimated GFR (MDRD) 99 Glucose 126 H Calcium 9.3 PD MEDICAL DECISION MAKING - ED course Complexity details: considered differential, d/w patient ED course: I discussed with the patient that his symptoms are most consistent with a submandibular gland inflammation likely secondary to obstruction of the duct. We have discussed the need for sialagogues and hot packs, as well as anti- inflammatories. I do not feel it is likely that the patient needs antibiotics at this point in time. He has no tenderness of the gingiva, and the mass is well demarcated and most consistent with submandibular gland. We have discussed usual indications for return. Departure - Departure Disposition: 01 Home, Self Care Clinical Impression: Submandibular gland inflammation Condition: Stable Instructions: ED Sublingual Gland Swelling UKO Prescriptions: Amoxicillin 500 mg PO TID 7 Days #21 cap Comments: Your symptoms are most consistent with a swollen submandibular salivary gland, which usually results from blockage of the salivary duct. The primary treatment for this is anti-inflammatories and things that make you salivating more, such as lemon candies. Rarely, these get infected, though it is not usual. If you begin to notice increasing swelling with redness and tenderness of the skin, or with fever and chills, please start the antibiotics.
== END 2022-04-20 16:30 | disposition home or self-care (01) ==
LOC: ED 13:50
DX: I88.9 Nonspecific lymphadenitis, unspecified (principal); F17.200 Nicotine dependence, unspecified, uncomplicated
CPT/HCPCS: 36415; 80048; 85025; 99282; 99283

== ENCOUNTER 2022-09-22 08:14 | Emergency (ER) | payer MEDICAID ==
[2022-09-22 08:22] VITALS: BP 152/121
[2022-09-22] MEDS ORDERED: MAG HYDROX/AL HYDROX/SIMETH 30 ML UDC PO STA (08:50)
[2022-09-22] MEDS ORDERED: SUCRALFATE 1 GM/10 ML UDC PO STA (08:50)
[2022-09-22] MEDS ORDERED: SODIUM CHLORIDE 0.9% 1,000 ML IV STA (08:50)
[2022-09-22] MEDS ORDERED: ONDANSETRON 4 MG/2 ML VIAL IVP STA (08:50)
[2022-09-22] MEDS ORDERED: LIDOCAINE VISCOUS 2% 15 ML UDC MM STA (08:50)
--- NOTE | 2022-09-22 08:55 | ED Physician Documentation ---
PD HPI ABD PAIN - Stated complaint Stated Complaint: NAUSEA/ABD PX - Chief complaint Chief Complaint: Abd Pain - History obtained from History obtained from: Patient - History of Present Illness Timing - onset: How many days ago (3) Timing - duration: Days (3) Timing - details: Gradual onset, Still present Quality: Cramping, Sharp, Pain Location: Epigastric Improved by: Meds Associated symptoms: Nausea, Vomiting, Diarrhea. No: Fever, Hematemesis, Me miguel, Hematochezia, Dysuria, Hematuria, Chest pain, Dizzy Similar symptoms before: Diagnosis (gastritis and suspected canabis hyperemeiss) Recently seen: Not recently seen - Additional information Additional information: Ken Best is a 32-year-old male who has a history of gastritis and was seen here previously about 2 years ago in September with a series of visits he eventually took a course of medication and his symptoms resolved and at the time he went into see the surgeon for endoscopy his condition had resolved. The patient states that he has reduced his cannabis intake to 1/10 of what he had reduced previously and he has not had significant symptoms until about 2 to 3 days ago. He has developed epigastric pain again and this morning had nausea and vomiting. He drove to his work to let them know he had to come to the hospital. The patient indicates that he does not drink alcohol on any regular basis and this has not been increased recently. He denies any use of ibuprofen within the past month. He does know that he has some sensitivity to tomato based sauces and he does acknowledge that he has been having pizza and items that do contain the tomatoes. He has a history of lactose intolerance and has diarrhea daily with loose stools 3 times a day. If he stops the dairy he has firm stools. He has never had blood in the diarrhea. The patient will occasionally take famotidine for acid symptoms and he has not taking any in the past week. He has not taken that medication for this issue. Review of Systems Constitutional: reports: Chills, Sweats. denies: Fever Eyes: denies: Decreased vision Ears: denies: Ear pain Nose: denies: Rhinorrhea / runny nose, Congestion Throat: denies: Sore throat Cardiac: denies: Chest pain / pressure, Palpitations Respiratory: denies: Dyspnea, Cough GI: reports: Abdominal Pain, Nausea, Vomiting, Diarrhea : denies: Dysuria, Frequency Skin: denies: Rash Musculoskeletal: denies: Neck pain, Back pain, Extremity pain Neurologic: denies: Generalized weakness, Focal weakness, Numbness PD PAST MEDICAL HISTORY - Past Medical History Past Medical History: Yes Cardiovascular: None Respiratory: Asthma, Pneumonia Neuro: None Endocrine/Autoimmune: None GI: None : None HEENT: None Psych: Anxiety Musculoskeletal: None Derm: None - Past Surgical History Past Surgical History: Yes HEENT: Tonsil/Adenoidectomy - Present Medications Home Medications: Ambulatory Orders Medication Instructions Recorded Confirmed Famotidine [Pepcid] 20 mg PO BID 09/22/22 09/22/22 Sucralfate [Carafate] 1 gm PO ACHS #60 tablet 09/22/22 - Allergies Allergies/Adverse Reactions: Allergies Allergy/AdvReac Type Severity Reaction Status Date / Time No Known Drug Allergies Allergy Verified 09/22/22 08:22 - Social History Does the pt smoke?: Yes Smoking Status: Current every day smoker Does the pt drink ETOH?: No Does the pt have substance abuse?: Yes - Immunizations Immunizations are current?: Yes - POLST Patient has POLST: No PD ED PE NORMAL - Vitals Vital signs reviewed: Yes (tachy and hypertensive) - General General: Alert and oriented X 3, No acute distress, Well developed/nourished - HEENT HEENT: Atraumatic, PERRL, EOMI - Neck Neck: Supple, no meningeal sign, No bony TTP - Cardiac Cardiac: No murmur, Other (tachy to 110) - Respiratory Respiratory: No respiratory distress, Clear bilaterally - Abdomen Abdomen: Normal bowel sounds, Soft, Non distended, No organomegaly, Other (epigastric tenderness to palpation is repeatable but without garding or rebound. ) - Back Back: No CVA TTP, No spinal TTP - Derm Derm: Normal color, Warm and dry, No rash - Extremities Extremities: No deformity, No edema - Neuro Neuro: Alert and oriented X 3, health and wellness director 2-12 intact, No motor deficit, No sensory deficit, Normal speech Eye Opening: Spontaneous Motor: Obeys Commands Verbal: Oriented GCS Score: 15 - Psych Psych: Normal mood, Normal affect Results - Vitals Vitals: Vital Signs - 24 hr 09/22/22 08:20 Temperature 36.5 C Heart Rate 102 H Respiratory 16 Rate Blood Pressure 152/121 H O2 Saturation 96 Oxygen O2 Source Room air - Labs Labs: Laboratory Tests 09/22/22 09/22/22 08:33 08:33 WBC 10.0 RBC 5.30 Hgb 15.7 Hct 46.4 MCV 87.5 MCH 29.6 MCHC 33.8 RDW 12.2 Plt Count 367 MPV 10.6 Neut # (Auto) 6.5 Lymph # (Auto) 2.4 Pope # (Auto) 1.0 Eos # (Auto) 0.1 Baso # (Auto) 0.1 Absolute Nucleated RBC 0.00 Nucleated RBC % 0.0 Sodium 137 Potassium 3.6 Chloride 102 Carbon Dioxide 24 Anion Gap 11.0 BUN 14 Creatinine 0.8 Estimated GFR (MDRD) 114 Glucose 114 H Calcium 9.3 Total Bilirubin 0.8 AST 85 H ALT 78 H Alkaline Phosphatase 71 Total Protein 8.2 Albumin 4.7 Globulin 3.5 Albumin/Globulin Ratio 1.3 Lipase 30 PD MEDICAL DECISION MAKING - ED course Complexity details: reviewed old records, reviewed results, re-evaluated patient, considered differential, d/w patient ED course: 32-year-old male with recurrent abdominal pain epigastric and vomiting this morning appears dehydrated and he is administered a liter of saline as well as a GI cocktail. He has symptoms similar to what is had previously and he denies the typical offending agents. He denies any significant use of cannabis but does use cannabis. He denies alcohol or ibuprofen. He does have an offending agent that he admits to using recently with tomato-based sauce. I suspect his condition is a gastritis and we will treat Departure - Departure Disposition: 01 Home, Self Care Clinical Impression: Gastritis Qualifiers: Gastritis type: unspecified gastritis Chronicity: acute Gastritis bleeding: without bleeding Qualified Code(s): K29.00 - Acute gastritis without bleeding Condition: Stable Instructions: ED Gastritis Follow-Up: Susi Taylor ARNP [Provider Admit Priv/Credential] - Prescriptions: Sucralfate [Carafate] 1 gm PO ACHS #60 tablet Comments: Ken today looks like you have a gastritis or irritation to the lining of your stomach. The recommendation is to use a medicine to reduce the acid in your stomach ( famotadine or omeprezole) and to use the Carafate to help it heal up. I have E scribed the Carafate to the [facility] in [place]. Our expectation is resolution of your pain and nausea and vomiting. I have given you a note for 2 days for work. I have given you a name of a doctor in [place] to follow- up with if you do not have improvement or you have worsening. Forms: Activity restrictions
[2022-09-22 08:57] LABS: BASOPHILS # (AUTO) 0.1 10^3/uL (0.0-0.1); BASOPHILS % (AUTO) 0.6 %; EOSINOPHILS # (AUTO) 0.1 10^3/uL (0.0-0.7); EOSINOPHILS % (AUTO) 0.8 %; HCT - HEMATOCRIT 46.4 % (42.0-52.0); HGB - HEMOGLOBIN 15.7 g/dL (14.0-18.0); LYMPHOCYTES # (AUTO) 2.4 10^3/uL (1.5-3.5); LYMPHOCYTES % (AUTO) 23.6 %; MEAN CORPUSCULAR HEMOGLOBIN 29.6 pg (27.0-31.0); MEAN CORPUSCULAR HGB CONC 33.8 g/dL (32.0-36.0); MEAN CORPUSCULAR VOLUME 87.5 fL (80.0-94.0); MEAN PLATELET VOLUME 10.6 fL (7.4-11.4); MONOCYTES % (AUTO) 9.9 %; NEUTROPHILS # (AUTO) 6.5 10^3/uL (1.5-6.6); NEUTROPHILS % (AUTO) 64.9 %; PLT - PLATELET COUNT 367 10^3/uL (130-450); RED CELL DISTRIBUTION WIDTH 12.2 % (12.0-15.0)
[2022-09-22 09:22] LABS: ALBUMIN 4.7 g/dL (3.2-5.5); ALBUMIN/GLOBULIN RATIO 1.3 (1.0-2.2); BILIRUBIN,TOTAL 0.8 mg/dL (0.2-1.0); CALCIUM 9.3 mg/dL (8.5-10.3); CREATININE 0.8 mg/dL (0.6-1.2); POTASSIUM 3.6 mmol/L (3.5-5.0); TOTAL PROTEIN 8.2 g/dL (6.7-8.2)
== END 2022-09-22 09:48 | disposition home or self-care (01) ==
LOC: ED 08:14
DX: K29.00 Acute gastritis without bleeding (principal); F17.200 Nicotine dependence, unspecified, uncomplicated
CPT/HCPCS: 36415; 80053; 83690; 85025; 96361; 96374; 99284; A9270

== ENCOUNTER 2022-12-24 09:16 | Outpatient (CLI) | payer MEDICAID ==
[2022-12-24 09:37] LABS: BASOPHILS # (AUTO) 0.1 10^3/uL (0.0-0.1); BASOPHILS % (AUTO) 0.5 %; EOSINOPHILS # (AUTO) 0.1 10^3/uL (0.0-0.7); EOSINOPHILS % (AUTO) 1.3 %; HCT - HEMATOCRIT 46.5 % (42.0-52.0); HGB - HEMOGLOBIN 15.5 g/dL (14.0-18.0); LYMPHOCYTES # (AUTO) 2.9 10^3/uL (1.5-3.5); LYMPHOCYTES % (AUTO) 31.6 %; MEAN CORPUSCULAR HEMOGLOBIN 29.8 pg (27.0-31.0); MEAN CORPUSCULAR HGB CONC 33.3 g/dL (32.0-36.0); MEAN CORPUSCULAR VOLUME 89.4 fL (80.0-94.0); MEAN PLATELET VOLUME 10.2 fL (7.4-11.4); MONOCYTES # (AUTO) 0.8 10^3/uL (0.0-1.0); MONOCYTES % (AUTO) 8.3 %; NEUTROPHILS # (AUTO) 5.4 10^3/uL (1.5-6.6); NEUTROPHILS % (AUTO) 58.2 %; PLT - PLATELET COUNT 294 10^3/uL (130-450); WHITE BLOOD COUNT 9.3 x10^3/uL (4.8-10.8)
[2022-12-24 09:58] LABS: ALBUMIN 4.2 g/dL (3.2-5.5); ALBUMIN/GLOBULIN RATIO 1.3 (1.0-2.2); ALKALINE PHOSPHATASE 67 IU/L (42-121); ALT ALANINE AMINOTRANSFERASE 33 IU/L (10-60); AST ASPARTATE AMINOTRANSFERASE 19 IU/L (10-42); BILIRUBIN,TOTAL 0.8 mg/dL (0.2-1.0); BUN - BLOOD UREA NITROGEN 19 mg/dL (6-20); CALCIUM 9.2 mg/dL (8.5-10.3); CARBON DIOXIDE - CO2 24 mmol/L (21-32); CHLORIDE 106 mmol/L (101-111); CHOL/HDL RATIO 3.7 (<5.0); CHOLESTEROL 196 mg/dL; CREATININE 0.9 mg/dL (0.6-1.2); GFR - MDRD 99 (>89); GLUCOSE 115 mg/dL (70-100); HDL CHOLESTEROL 53 mg/dL; LDL CHOLESTEROL,CALCULATED 119 mg/dL; LDL/HDL RATIO 2.2 (<3.6); POTASSIUM 4.2 mmol/L (3.5-5.0); SODIUM 139 mmol/L (135-145); TOTAL PROTEIN 7.4 g/dL (6.7-8.2); TRIGLYCERIDES 120 mg/dL; VLDL CHOLESTEROL 24 mg/dL
[2022-12-24 10:09] LABS: THYROID STIMULATING HORMONE 2.46 uIU/mL (0.34-5.60)
[2022-12-24 12:37] LABS: ESTIMATED AVERAGE GLUCOSE 114 mg/dL (70-100); HEMOGLOBIN A1c% 5.6 % (4.27-6.07)
== END 2022-12-24 09:17 | disposition home or self-care (01) ==
LOC: LAB 09:16
PROVIDERS: ATTEND Physician Assistant
DX: K76.0 Fatty (change of) liver, not elsewhere classified (principal); Z13.9 Encounter for screening, unspecified; R73.01 Impaired fasting glucose; Z13.29 Encounter for screening for other suspected endocrine disorder
CPT/HCPCS: 36415; 80050; 80061; 83036; 83721

== ENCOUNTER 2023-03-06 09:20 | Emergency (ER) | payer MEDICAID ==
[2023-03-06 09:30] VITALS: BP 144/88
--- NOTE | 2023-03-06 09:58 | ED Physician Documentation ---
History of Present Illness - Stated complaint Stated Complaint: CORNELIA OCHOA PX - Chief complaint Chief Complaint: Resp - History obtained from History obtained from: Patient - Additonal information Additional information: The patient comes to the emergency department chief complaint of abdominal pain, fatigue, shortness of breath, and fever on and off for the last 6 days. He states he had some nausea earlier in the course but is not nauseated right now. He states he just has some vague generalized abdominal pain. No diarrhea. He states has been taking Tylenol and its been keeping the fever down. His was sick with the same thing recently as where there are 2 children. The patient states he is otherwise fairly healthy. He is mainly here for a work note, as his boss made him come in. PD PAST MEDICAL HISTORY - Past Medical History Cardiovascular: None Respiratory: Asthma, Pneumonia Neuro: None Endocrine/Autoimmune: None GI: None : None HEENT: None Psych: Anxiety Musculoskeletal: None Derm: None - Past Surgical History Past Surgical History: Yes HEENT: Tonsil/Adenoidectomy - Present Medications Home Medications: Ambulatory Orders Medication Instructions Recorded Confirmed Famotidine [Pepcid] 20 mg PO BID 09/22/22 09/22/22 Sucralfate [Carafate] 1 gm PO ACHS #60 tablet 09/22/22 - Allergies Allergies/Adverse Reactions: Allergies Allergy/AdvReac Type Severity Reaction Status Date / Time No Known Drug Allergies Allergy Verified 03/06/23 09:30 - Social History Does the pt smoke?: Yes Smoking Status: Current every day smoker Does the pt drink ETOH?: No Does the pt have substance abuse?: Yes - Immunizations Immunizations are current?: Yes - POLST Patient has POLST: No PD ED PE NORMAL - Vitals Vital signs reviewed: Yes - General General: Alert and oriented X 3, No acute distress, Well developed/nourished - HEENT HEENT: Atraumatic, PERRL, EOMI, Moist mucous membranes - Neck Neck: Supple, no meningeal sign - Cardiac Cardiac: RRR, No murmur, Strong equal pulses - Respiratory Respiratory: No respiratory distress, Clear bilaterally - Abdomen Abdomen: Soft, Non tender, Other (Obese) - Derm Derm: Normal color, Warm and dry, No rash - Extremities Extremities: No deformity, No edema - Neuro Neuro: Alert and oriented X 3 - Psych Psych: Normal mood, Normal affect Results - Vitals Vitals: Vital Signs - 24 hr 03/06/23 09:26 Temperature 36.7 C Heart Rate 91 Respiratory 16 Rate Blood Pressure 144/88 H O2 Saturation 99 Oxygen O2 Source Room air PD Medical Decision Making - ED course Complexity details: reviewed results, re-evaluated patient, considered differential, d/w patient ED course: I offered the patient a chest x-ray and a viral panel, but he refused chest x- ray. He did agree to have the viral panel done. Patient overall was fairly well-appearing and I did not find evidence of an emergent condition at this time. I have written him a work note for the next couple of days and we have discussed symptomatic management at home. We have also discussed the usual indications for return. Departure - Departure Disposition: 01 Home, Self Care Clinical Impression: Febrile illness, acute Condition: Stable Instructions: ED Fever Unconf Cause Comments: It is not clear exactly at this point what is causing your illness the most likely, it is a viral syndrome. A viral panel has been obtained and final results are pending at this time. We will call you if there are any significant positive results but if you wish to monitor for negative results, you may go to our hospital website at [email or web address], Click on [facility]" tab and sign up for the patient portal. Results on this test take 2 to 3 hours to come back generally. You may continue take ibuprofen and Tylenol if needed for fevers. If you begin to have increasing shortness of breath or worsening cough and continued fevers, then you should reconsider getting the chest x-ray done Forms: Activity restrictions
[2023-03-06 11:04] LABS: B. PARAPERTUSSIS- RESP PCR PAN NOT DETECTED; B. PERTUSSIS- RESP PCR PANEL NOT DETECTED; C. PNEUMONIAE- RESP PCR PANEL NOT DETECTED; CORONAVIRUS 229E-RESP PCR NOT DETECTED; CORONAVIRUS HKU1-RESP PCR NOT DETECTED; CORONAVIRUS NL63-RESP PCR NOT DETECTED; CORONAVIRUS OC43-RESP PCR NOT DETECTED; HUMAN METAPNEUMOVIRUS NOT DETECTED; INFLUENZA A- RESP PCR PANEL NOT DETECTED; INFLUENZA B - RESP PCR PANEL NOT DETECTED; M. PNEUMONIAE- RESP PCR PANEL NOT DETECTED; PARAINFLUENZA VIRUS 1 NOT DETECTED; PARAINFLUENZA VIRUS 2 NOT DETECTED; PARAINFLUENZA VIRUS 3 NOT DETECTED; PARAINFLUENZA VIRUS 4 NOT DETECTED; RHINOVIRUS/ENTEROVIRUS NOT DETECTED; RSV- RESP PCR PANEL NOT DETECTED
[2023-03-06 11:06] LABS: SARS-CoV-2 -RESP PCR PANEL DETECTED
== END 2023-03-06 10:15 | disposition home or self-care (01) ==
LOC: ED 09:20
DX: U07.1 COVID-19 (principal); F17.200 Nicotine dependence, unspecified, uncomplicated
CPT/HCPCS: 87633; 99283; 99284

== ENCOUNTER 2023-06-13 08:15 | Emergency (ER) | payer MEDICAID ==
[2023-06-13 08:45] LABS: RAPID STREP SCREEN POSITIVE (Negative)
[2023-06-13] MEDS: KETOROLAC 30 MG/ML VIAL IM STA (08:50)
--- NOTE | 2023-06-13 09:02 | ED Physician Documentation ---
PD HPI HEENT - Stated complaint Stated Complaint: SORE THROAT - Chief complaint Chief Complaint: Heent - History obtained from History obtained from: Patient - Additional information Additional information: 33-year-old male with no significant past medical history presents for body aches and sore throat since last night. Took Tylenol last night which did help improve symptoms. Denies fevers currently. Review of Systems Constitutional: reports: Chills, Myalgias. denies: Fever, Weight Loss Nose: denies: Rhinorrhea / runny nose, Congestion, Foreign Body Throat: reports: Sore throat. denies: Dental pain / toothache, Oral lesions / sores PD PAST MEDICAL HISTORY - Past Medical History Past Medical History: Yes Cardiovascular: None Respiratory: Asthma, Pneumonia Neuro: None Endocrine/Autoimmune: None GI: GERD : None HEENT: None Psych: Anxiety Musculoskeletal: None Derm: None - Past Surgical History Past Surgical History: Yes HEENT: Tonsil/Adenoidectomy - Present Medications Home Medications: Ambulatory Orders Medication Instructions Recorded Confirmed Famotidine [Pepcid] 20 mg PO BID 09/22/22 06/13/23 Amoxicillin 500 mg PO BID #20 cap 06/13/23 - Allergies Allergies/Adverse Reactions: Allergies Allergy/AdvReac Type Severity Reaction Status Date / Time No Known Drug Allergies Allergy Verified 06/13/23 08:22 - Social History Does the pt smoke?: Yes Smoking Status: Current every day smoker Does the pt drink ETOH?: Yes Does the pt have substance abuse?: Yes Substance Use and Type: Marijuana - Immunizations Immunizations are current?: Yes - POLST Patient has POLST: No PD ED PE NORMAL - Vitals Vital signs reviewed: Yes - General General: Alert and oriented X 3, No acute distress, Well developed/nourished - HEENT HEENT: Atraumatic, PERRL, EOMI, Ears normal, Moist mucous membranes, Other (Pharyngeal erythema without edema or exudates) - Cardiac Cardiac: Strong equal pulses - Respiratory Respiratory: No respiratory distress - Abdomen Abdomen: Soft, Non tender, Non distended - Extremities Extremities: No deformity, No edema - Neuro Neuro: Alert and oriented X 3, recreational programs director 2-12 intact, No motor deficit, No sensory deficit, Normal speech Results - Vitals Vitals: Vital Signs - 24 hr 06/13/23 06/13/23 08:22 09:22 Temperature 37.4 C 37 C Heart Rate 96 88 Respiratory 18 18 Rate Blood Pressure 145/90 H 137/86 H O2 Saturation 98 98 Oxygen O2 Source Room air - Labs Labs: Laboratory Tests 06/13/23 06/13/23 08:30 08:43 Influenza A (Rapid) Negative Influenza B (Rapid) Negative Group A Strep Rapid POSITIVE H PD Medical Decision Making - ED course Complexity details: reviewed results, re-evaluated patient, considered differential, d/w patient, d/w family ED course: Sore throat and body aches. Positive for strep throat. Discharged with antibiotics. Tolerating secretions without difficulty, no drooling or pooling of secretions. Departure - Departure Disposition: 01 Home, Self Care Clinical Impression: Strep throat Condition: Stable Instructions: ED Strep Pharyngitis Conf Prescriptions: Amoxicillin 500 mg PO BID #20 cap Forms: PCP List Discharge Date/Time: 06/13/23 09:23
[2023-06-13 09:26] VITALS: BP 137/86
== END 2023-06-13 09:23 | disposition home or self-care (01) ==
LOC: ED 08:15
DX: J02.0 Streptococcal pharyngitis (principal); F17.200 Nicotine dependence, unspecified, uncomplicated
CPT/HCPCS: 87275; 87276; 87430; 96374; 99283

== ENCOUNTER 2023-06-25 18:08 | Emergency (ER) | payer MEDICAID ==
--- NOTE | 2023-06-25 18:20 | ED Physician Documentation ---
History of Present Illness - Stated complaint Stated Complaint: BEE STING - History obtained from History obtained from: Patient - Additonal information Additional information: The patient comes to the emergency department chief complaint of itching and swelling after getting stung by at least 1 be. He states that he was outside working and accidentally disturbed some bees. He thought it was just one sting but his thinks she saw 3 bees land on his forehead. The patient states that this just happened within the last 10 or 15 minutes and that he immediately began to have burning and itching all over his body. He noticed some swelling of his forehead and restorationist where the stings occurred, and also feels a little bit like his lower lip swelling. He denies any difficulty breathing, or swelling of the throat or tongue. He has not been previously known to have an allergy to hymenoptera. No other complaints at this time. PD PAST MEDICAL HISTORY - Past Medical History Cardiovascular: None Respiratory: Asthma, Pneumonia Neuro: None Endocrine/Autoimmune: None GI: GERD : None HEENT: None Psych: Anxiety Musculoskeletal: None Derm: None - Past Surgical History Past Surgical History: Yes HEENT: Tonsil/Adenoidectomy - Present Medications Home Medications: Ambulatory Orders Medication Instructions Recorded Confirmed EPINEPHrine [Epinephrine] 0.3 mg IJ ONCE PRN #1 each 06/25/23 Famotidine [Pepcid] 20 mg PO BID 06/25/23 06/25/23 predniSONE [Deltasone] 60 mg PO DAILY 3 Days #9 tablet 06/25/23 - Allergies Allergies/Adverse Reactions: Allergies Allergy/AdvReac Type Severity Reaction Status Date / Time wasp sting Allergy Anaphylaxis Uncoded 06/25/23 18:55 - Social History Does the pt smoke?: Yes Smoking Status: Current every day smoker Does the pt drink ETOH?: Yes Does the pt have substance abuse?: Yes - Immunizations Immunizations are current?: Yes - POLST Patient has POLST: No PD ED PE NORMAL - Vitals Vital signs reviewed: Yes - General General: Alert and oriented X 3, Well developed/nourished, Other ( The patient appears anxious, but otherwise in no apparent distress.) - HEENT HEENT: Atraumatic, PERRL, EOMI, Moist mucous membranes, Pharynx benign, Other (No edema of the oropharyngeal structures. Erythema and global, mild edema of the patient's right restorationist and forehead. No edema of the lips or eyelids.) - Neck Neck: Supple, no meningeal sign - Cardiac Cardiac: RRR, No murmur - Respiratory Respiratory: No respiratory distress, Clear bilaterally - Derm Derm: Warm and dry, Other (Mild erythema of face, With edema of right face and fine, maculopapular rash of forehead.) - Extremities Extremities: No deformity - Neuro Neuro: Alert and oriented X 3 - Psych Psych: Other (The patient is visibly anxious, hyperventilating and nearly crying.) Results - Vitals Vitals: Vital Signs - 24 hr 06/25/23 06/25/23 06/25/23 18:17 19:21 20:29 Temperature 37.5 C Heart Rate 127 H 107 H 101 H Respiratory 26 H 20 20 Rate Blood Pressure 149/76 H 134/94 H 129/95 H O2 Saturation 98 98 98 Oxygen O2 Source Room air PD Medical Decision Making - ED course Complexity details: considered differential, d/w patient, d/w family ED course: The patient was evaluated in the emergency department by myself upon arrival. He did have significant hives and was very anxious, but I did not appreciate any oropharyngeal edema. Nonetheless, because of the rapidity of development of his reaction, he was given IM epinephrine, as well as IV Benadryl, Decadron, and Pepcid. He was also given a small dose of Ativan for his anxiety. The patient was observed in the emergency department and given IV fluids while his medications took effect. On reevaluation, he was feeling much better and reported that he felt as though his hives and itching were significantly improved. He had not developed any progression of edema into his oropharynx. I felt that the patient was stable for discharge home after period of observation. I have sent prescriptions for prednisone and an EpiPen to the pharmacy of the patient's choice. We have discussed that he may need to use the steroid as well as Benadryl, which he already has at home, should the symptoms recur to any degree. he should the patient should keep his EpiPen on him if he is outside, in case he gets stung again, as I believe he is at risk for anaphylaxis in response to future stings. We have discussed the usual indications for return. 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 You have responded very well to the medications we have given you and are expected to continue to do well. Just in case you have some recurrence of your symptoms, prescriptions for for an EpiPen and for short course of steroids have been electronically transmitted to the [facility] pharmacy in [place]. You may also take 25 to 50 mg of Benadryl every 6 hours as needed for any itching or hives that may crop up again. If you begin to notice swelling of your face or throat despite taking the EpiPen, please return to the emergency department immediately. It is advisable if you frequently work outside to have an EpiPen on hand with you just in case you get stung and have another reaction. Discharge Date/Time: 06/25/23 20:38
[2023-06-25] MEDS ORDERED: FAMOTIDINE 20 MG/2 ML VIAL IVP STA (18:21)
[2023-06-25] MEDS ORDERED: diphenhydrAMINE INJ 50 MG/ML VIAL IVP STA (18:21)
[2023-06-25] MEDS ORDERED: EPINEPHrine 1 MG/ML AMP IM STA (18:21)
[2023-06-25] MEDS ORDERED: DEXAMETHASONE 10 MG/ML VIAL IV STA (18:21)
[2023-06-25] MEDS ORDERED: SODIUM CHLORIDE 0.9% 1,000 ML IV STA (18:22)
[2023-06-25] MEDS ORDERED: LORazepam 2 MG/ML VIAL IVP STA (18:25)
[2023-06-25 20:34] VITALS: BP 129/95
== END 2023-06-25 20:38 | disposition home or self-care (01) ==
LOC: ED 18:08
DX: T63.441A Toxic effect of venom of bees, accidental (unintentional), initial encounter (principal); F17.200 Nicotine dependence, unspecified, uncomplicated
CPT/HCPCS: 36415; 96372; 96374; 99283; J1200; J2060

== ENCOUNTER 2023-07-25 16:42 | Emergency (ER) | payer MEDICAID ==
[2023-07-25 17:09] VITALS: BP 148/99; O2SAT 98
--- NOTE | 2023-07-25 17:21 | ED Physician Documentation ---
PD HPI UPPER EXT INJURY - Stated complaint Stated Complaint: RT FINGER INJ - Chief complaint Chief Complaint: Ext Problem - History obtained from History obtained from: Patient (He started develop right middle finger pain last night. There was no trauma. Today there was purulent drainage from under the nail.) PD PAST MEDICAL HISTORY - Past Medical History Cardiovascular: None Respiratory: Asthma, Pneumonia Neuro: None Endocrine/Autoimmune: None GI: GERD : None HEENT: None Psych: Anxiety Musculoskeletal: None Derm: None - Past Surgical History Past Surgical History: Yes HEENT: Tonsil/Adenoidectomy - Present Medications Home Medications: Ambulatory Orders Medication Instructions Recorded Confirmed EPINEPHrine [Epinephrine] 0.3 mg IJ ONCE PRN #1 each 06/25/23 07/25/23 Famotidine [Pepcid] 20 mg PO BID 06/25/23 07/25/23 Amox/Clav 875/125 [Augmentin] 1 each PO Q12H #14 tablet 07/25/23 - Allergies Allergies/Adverse Reactions: Allergies Allergy/AdvReac Type Severity Reaction Status Date / Time wasp sting Allergy Anaphylaxis Uncoded 07/25/23 16:49 - Social History Does the pt smoke?: Yes Smoking Status: Current every day smoker Does the pt drink ETOH?: Yes Does the pt have substance abuse?: Yes - Immunizations Immunizations are current?: Yes - POLST Patient has POLST: No PD ED PE NORMAL - Vitals Vital signs reviewed: Yes - General General: Alert and oriented X 3, No acute distress - Extremities Extremities: Other (He has what looks like a completely drained paronychia on the radial side of the right middle finger nail.) - Neuro Neuro: Alert and oriented X 3, Normal speech Results - Vitals Vitals: Vital Signs - 24 hr 07/25/23 16:50 Temperature 36.5 C Heart Rate 103 H Respiratory 16 Rate Blood Pressure 148/99 H O2 Saturation 98 Oxygen O2 Source Room air Departure - Departure Disposition: 01 Home, Self Care Clinical Impression: Paronychia Condition: Good Record reviewed to determine appropriate education?: Yes Instructions: ED Fingernail Infec Prescriptions: Amox/Clav 875/125 [Augmentin] 1 each PO Q12H #14 tablet Comments: I sent your prescription electronically to the [facility] in [place]. Warm soaks a few times a day for a few days. Return if worse.
== END 2023-07-25 17:26 | disposition home or self-care (01) ==
LOC: ED 16:42
DX: L03.011 Cellulitis of right finger (principal); F17.200 Nicotine dependence, unspecified, uncomplicated
CPT/HCPCS: 99282; 99283

== ENCOUNTER 2024-02-02 12:21 | Emergency (ER) | payer MEDICAID ==
[2024-02-02 12:31] VITALS: BP 150/100; O2SAT 98
--- NOTE | 2024-02-02 12:37 | ED Physician Documentation ---
PD HPI OPHTHO - Stated complaint Stated Complaint: LEFT EYE PX - Chief complaint Chief Complaint: Heent - History obtained from History obtained from: Patient - Additional information Additional information: Got a piece of wood in his eye while working with a skill saw at home just prior to arrival. Vision is unaffected. He does not wear contacts. PD PAST MEDICAL HISTORY - Past Medical History Past Medical History: Yes Cardiovascular: None Respiratory: Asthma, Pneumonia Neuro: None Endocrine/Autoimmune: None GI: GERD : None HEENT: None Psych: Anxiety Musculoskeletal: None Derm: None - Past Surgical History Past Surgical History: Yes HEENT: Tonsil/Adenoidectomy - Present Medications Home Medications: Ambulatory Orders Medication Instructions Recorded Confirmed EPINEPHrine [Epinephrine] 0.3 mg IJ ONCE PRN #1 each 06/25/23 12/11/23 Famotidine [Pepcid] 20 mg PO BID 06/25/23 12/11/23 Albuterol Sulf [Ventolin Hfa 1 - 2 puffs INH Q4HR PRN 12/11/23 12/11/23 Inhaler] Amoxicillin 500 mg PO TID #21 cap 12/11/23 dexAMETHasone [Decadron] 4 mg PO DAILY #5 tablet 12/11/23 Erythromycin Base [Erythromycin 1 appful OP 5XD 7 Days #1 gm 02/02/24 Ophthalmic Ointment] - Allergies Allergies/Adverse Reactions: Allergies Allergy/AdvReac Type Severity Reaction Status Date / Time wasp sting Allergy Anaphylaxis Uncoded 02/02/24 12:25 - Social History Does the pt smoke?: No Smoking Status: Never smoker Does the pt drink ETOH?: Yes Does the pt have substance abuse?: Yes - Immunizations Immunizations are current?: Yes - POLST Patient has POLST: No PD ED PE NORMAL - Vitals Vital signs reviewed: Yes - General General: Alert and oriented X 3, No acute distress - HEENT HEENT: Other (There is no foreign body on the cornea, conjunctiva, nor in the fornices. There is a small area of fluorescein uptake of the left cornea superolateral. Negative Elaina sign.) - Neuro Neuro: Alert and oriented X 3 Results - Vitals Vitals: Vital Signs - 24 hr 02/02/24 12:25 Temperature 36.8 C Heart Rate 90 Respiratory 16 Rate Blood Pressure 150/100 H O2 Saturation 98 Oxygen O2 Source Room air PD Medical Decision Making - ED course ED course: He had a foreign body but it is gone but it did leave a corneal abrasion that is small. Will start on topical erythromycin. Departure - Departure Disposition: 01 Home, Self Care Clinical Impression: Corneal abrasion, left Qualifiers: Encounter type: initial encounter Qualified Code(s): S05.02XA - Injury of conjunctiva and corneal abrasion without foreign body, left eye, initial encounter Condition: Good Record reviewed to determine appropriate education?: Yes Instructions: ED Eye Injury Corneal Abrasion Follow-Up: Yahir Sheridan MD [Provider Admit Priv/Credential] - Prescriptions: Erythromycin Base [Erythromycin Ophthalmic Ointment] 1 appful OP 5XD 7 Days #1 gm Comments: As discussed, it does not look like there is any residual foreign body but there is a scrape/abrasion on the left cornea. This should heal well without any long-term issues. I suspect she will be asymptomatic by the end of the weekend. If you are still having symptoms on Monday follow-up with the imaging scheduler listed on this form, call his office Monday morning for an appointment. Return for new or worsening symptoms.
[2024-02-02] MEDS: ERYTHROMYCIN OPHTH OINT 1 GM TUBE LEFTEYE STA (12:41)
== END 2024-02-02 12:53 | disposition home or self-care (01) ==
LOC: ED 12:21
DX: S05.02XA Injury of conjunctiva and corneal abrasion without foreign body, left eye, initial encounter (principal); X58.XXXA Exposure to other specified factors, initial encounter; Y93.89 Activity, other specified; Y92.009 Unspecified place in unspecified non-institutional (private) residence as the place of occurrence of the external cause; Z79.899 Other long term (current) drug therapy
CPT/HCPCS: 99282; 99283; J3490

== ENCOUNTER 2024-06-08 20:22 | Outpatient (CLI) | payer MEDICAID | END 2024-06-08 23:59 | disposition critical access hospital (66) | LOC: EMS 20:22 | DX: F41.9 Anxiety disorder, unspecified (principal); R06.02 Shortness of breath; R11.0 Nausea; R20.2 Paresthesia of skin; R07.9 Chest pain, unspecified; R00.0 Tachycardia, unspecified; R25.1 Tremor, unspecified | CPT/HCPCS: A0425; A0427; A0999 ==

== ENCOUNTER 2024-06-08 20:32 | Emergency (ER) | payer MEDICAID ==
--- NOTE | 2024-06-08 20:44 | ED Physician Documentation ---
History of Present Illness - Stated complaint Stated Complaint: PANIC ATTACK - History obtained from History obtained from: Patient - Additonal information Additional information: HPI from patient, EMS. 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 He subsequently, rapidly developed numbness in both hands, "tunnel vision" (per p atient), and felt like he might pass out. Patient did not lose consciousness. Patient says that he has history of panic attacks, but although many of the symptoms overlap with previous panic attack symptoms for him, they have never been this severe nor lasted as long as tonight's did. He called 911 after pulling over to the side of the road. Patient was given 2.5 mg Versed en route by EMS and reports resolution of all of his symptoms. Patient was recently prescribed propranolol as a PRN for anxiety/panic attacks but did not take one tonight as he did not think it would work fast enough. Review of Systems Cardiac: denies: Chest pain / pressure, Palpitations, Pedal edema, Calf pain PD PAST MEDICAL HISTORY - Past Medical History Cardiovascular: None Respiratory: Asthma, Pneumonia Neuro: None Endocrine/Autoimmune: None GI: GERD : None HEENT: None Psych: Anxiety Musculoskeletal: None Derm: None - Past Surgical History Past Surgical History: Yes HEENT: Tonsil/Adenoidectomy - Present Medications Home Medications: Ambulatory Orders Medication Instructions Recorded Confirmed EPINEPHrine [Epinephrine] 0.3 mg IJ ONCE PRN #1 each 06/25/23 12/11/23 Famotidine [Pepcid] 20 mg PO BID 06/25/23 12/11/23 Albuterol Sulf [Ventolin Hfa 1 - 2 puffs INH Q4HR PRN 12/11/23 06/08/24 Inhaler] Amoxicillin 500 mg PO TID #21 cap 12/11/23 dexAMETHasone [Decadron] 4 mg PO DAILY #5 tablet 12/11/23 Erythromycin Base [Erythromycin 1 appful OP 5XD 7 Days #1 gm 02/02/24 Ophthalmic Ointment] LORazepam [Ativan] 1 mg PO BID PRN #14 tablet 06/08/24 Pantoprazole [Protonix] 40 mg PO DAILY 06/08/24 06/08/24 Propranolol [Inderal] 40 mg PO PRN PRN 06/08/24 06/08/24 - Allergies Allergies/Adverse Reactions: Allergies Allergy/AdvReac Type Severity Reaction Status Date / Time wasp sting Allergy Anaphylaxis Uncoded 06/08/24 20:51 - Social History Does the pt smoke?: No Smoking Status: Never smoker Does the pt drink ETOH?: Yes Does the pt have substance abuse?: Yes - Immunizations Immunizations are current?: Yes - POLST Patient has POLST: No PD ED PE NORMAL - Vitals Vital signs reviewed: Yes - General General: Alert and oriented X 3, No acute distress, Well developed/nourished - Neck Neck: Supple, no meningeal sign - Cardiac Cardiac: RRR, No murmur, No gallop, No rub - Respiratory Respiratory: No respiratory distress, Clear bilaterally - Abdomen Abdomen: Soft, Non tender - Neuro Neuro: Alert and oriented X 3 Eye Opening: Spontaneous Motor: Obeys Commands Verbal: Oriented GCS Score: 15 - Psych Psych: Normal mood, Normal affect Results - Vitals Vitals: Vital Signs - 24 hr 06/08/24 06/08/24 06/08/24 20:43 22:15 22:40 Temperature 36.5 C 36.5 C Heart Rate 101 H 86 86 Respiratory 19 18 18 Rate Blood Pressure 139/89 H 135/74 H 135/74 H O2 Saturation 97 93 93 Oxygen O2 Source Room air - EKG (time done) No standard instances EKG releavant findings:: EKG personally interpreted by author of this note. Relevant findings are: Rate: Rate (enter#) (95) Rhythm: NSR, Normal P waves [place]: LAD Intervals: Normal [place], QRS normal Ischemia: Normal ST segments, Q waves (isolated QIII (also noted on EKG 04/06/16)) Compare to prior EKG: Unchanged from prior EKG - Labs Labs: Laboratory Tests 06/08/24 06/08/24 21:29 21:29 WBC 13.4 H RBC 4.72 Hgb 14.3 Hct 41.6 L MCV 88.1 MCH 30.3 MCHC 34.4 RDW 12.5 Plt Count 306 MPV 10.0 Neut # (Auto) 9.0 H Lymph # (Auto) 3.1 Mcmullen # (Auto) 1.1 H Eos # (Auto) 0.1 Baso # (Auto) 0.1 Absolute Nucleated RBC 0.00 Nucleated RBC % 0.0 Sodium 139 Potassium 3.4 L Chloride 104 Carbon Dioxide 25 Anion Gap 10.0 BUN 17 Creatinine 1.0 Estimated GFR (MDRD) 87 L Glucose 106 H Calcium 9.5 - Rads (name of study) chest xray Relevant Findings:: Prelim report reviewed, See rad report PD Medical Decision Making - ED course Complexity details: reviewed results, re-evaluated patient, considered differential, d/w patient ED course: No concerning findings on EKG, CBC (mild leukocytosis noted with WBC 13.4), basic metabolic profile (minimal hypokalemia noted, potassium 3.4). Normal chest x-ray. Upon completion of my initial H&P, the patient says he is starting to feel return of his anxiety and he is given 1 mg IV lorazepam with good anxiolysis (per patient report on reevaluation). On reevaluation, results discussed with patient. He is in NAD and his symptoms have not reoccurred since he was given the IV lorazepam. Given the unremarkable test results, suspect panic attack as etiology of symptoms. I have electronically submitted prescription for lorazepam PRN to patient's pharmacy of choice. Return precautions reviewed. Departure - Departure Disposition: 01 Home, Self Care Clinical Impression: Panic attack, Hypokalemia Condition: Good Instructions: ED Potassium Deficiency, ED Panic Attack Prescriptions: LORazepam [Ativan] 1 mg PO BID PRN #14 tablet PRN Reason: Anxiety Comments: There were no concerning findings on tonight's tests including EKG, chest x-ray, and blood test. As we discussed, your potassium level was just below the normal range; for this, you are given a 1-time dose of oral potassium. I have electronically submitted a prescription for lorazepam to the [facility] pharmacy in [place]. Forms: PCP List Discharge Date/Time: 06/08/24 22:41
[2024-06-08] MEDS: LORazepam 2 MG/ML VIAL IVP STA (21:30)
[2024-06-08 21:34] LABS: BASOPHILS # (AUTO) 0.1 10^3/uL (0.0-0.1); BASOPHILS % (AUTO) 0.4 %; EOSINOPHILS # (AUTO) 0.1 10^3/uL (0.0-0.7); EOSINOPHILS % (AUTO) 0.6 %; HCT - HEMATOCRIT 41.6 % (42.0-52.0); HGB - HEMOGLOBIN 14.3 g/dL (14.0-18.0); LYMPHOCYTES # (AUTO) 3.1 10^3/uL (1.5-3.5); LYMPHOCYTES % (AUTO) 23.1 %; MEAN CORPUSCULAR HEMOGLOBIN 30.3 pg (27.0-31.0); MEAN CORPUSCULAR HGB CONC 34.4 g/dL (32.0-36.0); MEAN CORPUSCULAR VOLUME 88.1 fL (80.0-94.0); MONOCYTES # (AUTO) 1.1 10^3/uL (0.0-1.0); MONOCYTES % (AUTO) 7.9 %; NEUTROPHILS % (AUTO) 67.7 %; PLT - PLATELET COUNT 306 10^3/uL (130-450); RED BLOOD COUNT 4.72 10^6/uL (4.70-6.10); RED CELL DISTRIBUTION WIDTH 12.5 % (12.0-15.0); WHITE BLOOD COUNT 13.4 x10^3/uL (4.8-10.8)
[2024-06-08 21:47] LABS: CALCIUM 9.5 mg/dL (8.5-10.3); POTASSIUM 3.4 mmol/L (3.5-4.5)
--- NOTE | 2024-06-08 21:58 | XRAY Report ---
PROCEDURE: Chest 2V INDICATIONS: chest pain, dyspnea TECHNIQUE: 2 views of the chest were acquired. COMPARISON: Prior chest plain films 2 views 12/11/2023. FINDINGS: Surgical changes and devices: None. Lungs and pleura: No pleural effusions or pneumothorax. Lungs are clear considering reduced inspira tory volume. Mediastinum: Mediastinal contours appear normal. Heart size is normal. Bones and chest wall: No suspicious bony lesions. Overlying soft tissues appear unremarkable. IMPRESSION: No acute cardiopulmonary process. Mildly reduced inspiratory volume. Reviewed by: Nas Cano MD on 06/08/2024 9:57 PM PDT Approved by: Nas Cano MD on 06/08/2024 9:57 PM PDT Station ID: [id number]
[2024-06-08 22:19] VITALS: BP 135/74; O2SAT 93
[2024-06-08] MEDS: POTASSIUM BICARB 25 MEQ TABLET PO STA (22:29)
== END 2024-06-08 22:41 | disposition home or self-care (01) ==
LOC: EDUNIT# → ED 20:32
DX: F41.0 Panic disorder [episodic paroxysmal anxiety] (principal); E87.6 Hypokalemia; J45.909 Unspecified asthma, uncomplicated; Z79.899 Other long term (current) drug therapy
CPT/HCPCS: 36415; 71046; 80048; 85025; 93005; 96374; 99284; A9270; J2060